=== PATIENT | female | born 1970 | race Caucasian/White ===

== ENCOUNTER 2025-04-04 18:31 | Inpatient (IN) | payer MEDICAID ==
[~2025-04-04] VITALS: Ht 175.3 cm; Wt 154.0 kg
--- NOTE | 2025-04-04 18:46 | Physician Documentation ---
History of Present Illness General Stated Complaint: RESPIRATORY Time Seen by MD: 18:45 History of Present Illness Initial Comments The patient is a 55-year-old female with a history of COPD lives in a skilled nursing. The skilled nursing checked her oxygen saturation this morning and it was 30%. The placed her on oxygen at the skilled nursing increasing her saturations to 70 80%. The patient denies any significant shortness of breath and skilled nursing states she has been more confused over last 24 hours. The patient denies being intubated in the past. The patient denies any recent fevers or chills or productive sputum. The patient denies any chest pain patient's symptoms are moderate to severe. The patient received three albuterol treatments today at the skilled nursing Medication Reconciliation Allergies: Coded Allergies: Penicillins (Verified Allergy, Unknown, 04/04/25) Uncoded Allergies: FISH (Allergy, Unknown, 04/04/25) Scheduled Albuterol Sulfate Nebs* (Proventil Nebs*), 1 VIAL NEB Q4H, (Reported) Bupropion Hcl SR* (Wellbutrin SR*), 1 TAB PO DAILY, (Reported) Furosemide (Lasix), 1 TAB PO DAILY, (Reported) Gabapentin (Gabapentin), 1 CAP PO Q8H, (Reported) Levothyroxine Sodium (Levothyroxine), 1 CAP PO DAILY, (Reported) Nystatin/Triamcin Cream* (Mycolog Cream*), 1 APPLIC TP TID, (Reported) Rivaroxaban (Xarelto), 1 TAB PO DAILY, (Reported) Scheduled PRN Acetaminophen (Tylenol), 1 TAB PO QDAY PRN PRN for pain or fever, (Reported) Miscellaneous Medications Pantoprazole Sodium (Protonix), 40 MG PO, (Reported) Past Medical History Past Medical History: COPD Review of Systems All Other Systems at this time: Reviewed and Negative Physical Exam Physical Exam Physical Exam VITALS: Reviewed and as above. GENERAL: Alert, mild respiratory distress large BMI HEENT: Normocephalic, atraumatic, PERRL, EOMI, dry mucosa, no erythema RESPIRATORY: Diminished breath sounds bilaterally, mild rest auditory distress CHEST: The patient mild distress with abdominal retractions CV: Regular rate, rhythm, no edema, no murmur, No: JVD GI: Soft, non-tender, bowels sounds present, no rebound, guarding, or rigidity BACK: No CVA tenderness, or swelling MUSCULOSKELETAL: No deformities, no edema SKIN: Warm and dry, no rash NEURO: Oriented x4, No motor or sensory deficit PSYCH: Normal mood and affect, no agitation Progress Results/Orders Results/Orders Orders - NORBERTO SANTIAGO MD Electrocardiogram (04/04/25 19:02) Chest,Single View (04/04/25 19:27) Saline Lock (04/04/25 19:02) Monitor (04/04/25 19:02) Oxygen (04/04/25 19:02) Abg (Arterial Blood Gas) (04/04/25 ) Bipap/Cpap (04/04/25 ) Ipratropium/Albuterol Nebule (Ipratrop/A (04/04/25 19:35) Covid19 Binax Poc Result Entry (04/04/25 19:50) Page Hospitalist (04/04/25 20:47) Fill Out Med Reconciliation (04/04/25 20:47) Completed Orders - NORBERTO SANTIAGO MD Cbc/Diff (04/04/25 19:02) MG (04/04/25 19:02) Electrocardiogram (04/04/25 19:02) PBNP (04/04/25 19:02) Chest,Single View (04/04/25:27) BMP (04/04/25 19:02) Hs Troponin I W Calculations (04/04/25 19:02) Hs Troponin I W Calculations (04/04/25 21:02) Hs Troponin I W Calculations (04/04/25 22:02) Procalcitonin (04/04/25 19:02) Methylprednisolone Sod Succ (Solumedrol (04/04/25 19:05) Potassium Cl Sr Tablet (K-Dur Tablet) (04/04/25 19:40) Potassium Cl Sr Tablet (K-Dur Tablet) (04/04/25 19:40) Magnesium Cl Er Tablet (Slow-Mag Tablet) (04/04/25 19:40) MG (04/07/25 03:00) MG (04/08/25 03:00) Magnesium Sulf-Water 2g/50ml (Magnesium (04/04/25 19:40) Magnesium Sulf-Water 4g/100ml (Magnesium (04/04/25 19:40) Potassium Cl 40meq/1/2ns 520ml ([place] (04/04/25 19:40) K And/Or Mag Replacement (K And/Or Mag R (04/04/25 20:00) Ceftriaxone 2gm/D5w 50ml Bag (Rocephin 2 (04/04/25 20:15) Hgb A1c (04/04/25 19:23) Lipid Panel (04/04/25 19:23) PHOS (04/04/25 19:23) Laboratory Tests Test 04/04/25 19:17 04/04/25 19:23 04/04/25 20:00 04/04/25 21:34 Blood Gas Specimen Type Arterial Blood Gas Puncture Site Lr O2 Saturation 68.1 *L Arterial Blood pH (Temp corrected) 7.353 Arterial Blood pCO2 (Temp correct) 73.0 *H Arterial Blood pO2 (Temp corrected) 36.1 *L Arterial Blood PO2/FiO2 Ratio 0.84 Arterial Blood HCO3 39.8 H Arterial Blood Base Excess 10.8 H Arterial Blood Oxyhemoglobin 67.0 L Arterial Blood Carboxyhemoglobin 1.5 Arterial Blood Methemoglobin 0.1 Arterial Blood Deoxyhemoglobin 31.4 H Trev Test Modified Blood Gas Hemoglobin 14.5 Blood Gas Temperature 36.7 Blood Gas Modality Room air FiO2 44.0 Blood Gas Critical Value Called To ohl White Blood Count 5.7 Red Blood Count 5.53 Hemoglobin 13.3 Hematocrit 42.7 Mean Corpuscular Volume 77.3 L Mean Corpuscular Hemoglobin 24.0 L Mean Corpuscular Hemoglobin Concent 31.1 L Red Cell Distribution Width 19.2 H Platelet Count 217 Mean Platelet Volume 6.8 L Neutrophils (%) (Auto) 52.2 Lymphocytes (%) (Auto) 38.0 Monocytes (%) (Auto) 6.9 Eosinophils (%) (Auto) 2.3 Basophils (%) (Auto) 0.6 Neutrophils # (Auto) 3.0 Lymphocytes # (Auto) 2.2 Monocytes # (Auto) 0.4 Eosinophils # (Auto) 0.1 Basophils # (Auto) 0.0 CBC Comment Prothrombin Time 13.5 H INR International Normalized Ratio 1.4 Activated Partial Thromboplast Time 29 Coagulation Comments Sodium Level 138 Potassium Level 3.2 L Chloride Level 93 L Carbon Dioxide Level 42.6 *H Anion Gap 2 L Blood Urea Nitrogen 10 Creatinine 0.87 Estimated GFR/1.73 m2 67 BUN/Creatinine Ratio 11.5 Glucose Level 135 H Hemoglobin A1c 5.7 Calcium Level 8.5 Phosphorus Level 4.3 Magnesium Level 1.8 Troponin I High Sensitivity 23 19 Pro-B-Type Natriuretic Peptide 1270 H Albumin 3.0 L Triglycerides Level 74 Cholesterol Level 113 LDL Cholesterol 62 HDL Cholesterol 40 Cholesterol/HDL Ratio 2.8 Procalcitonin < 0.05 Chemistry Comments SARS-CoV-2 Antigen (Rapid) Negative Troponin I High Sens Percent Delta 17 Troponin I Hi Sens Absolute Change -4 Medical Decision Making Additional information obtaine: old records Findings Patient's EKG demonstrates a sinus rhythm with a rate of 81 with a an normal axis and nonspecific ST abnormalities impression has a borderline EKG. No ST- elevation or ST-depression was appreciated time of the EKG was 1910 it was interpreted at 7:13 p.m.. The patient's chest x-ray was individually interpr eted by me as showing cardiomegaly with pulmonary vascular congestion. The patient has bilateral interstitial infiltrates in her lung rivas she has cardiomegaly and she has a narrow mediastinum with normal-appearing bony structures. The radiologist's interpretation was reviewed as well. The patient presented with hypercapnic respiratory failure the patient was paced on BiPAP th e patient will be treated for possible pneumonia, the patient will also be treated with Lasix. The patient will be admitted to the hospitalist case has been discussed with the hospitalist. Differential Diagnosis Pneumonia, COPD, CHF, pulmonary embolism Departure Admitted to Inpatient Unit: yes, to hospitalist Impression: Primary Impression: Chronic obstructive pulmonary disease Qualified Codes: J44.9 - Chronic obstructive pulmonary disease, unspecified Additional Impression: Acute respiratory failure with hypoxia and hypercarbia Referrals: NO PRIMARY CARE PROVIDER (PCP) Critical Care Note Total Time (mins): 35 Critical Care Note The very real possibility of a deterioration of this patient's condition required the highest level of my preparedness for sudden, emergent intervention. I provided critical care services, which included medication orders, frequent reevaluations of the patient's condition and response to treatment, ordering and reviewing test results, and discussing the case with various consultants. Excludes time spent performing separately billable procedures. The critical care time associated with the care of the patient was 35 minutes. Signature Scribe Signature: No scribe Attestation: The note accurately reflects work and decisions made by me.Norberto Santiago MD 04/09/25 08:51 NORBERTO SANTIAGO MD Apr 04, 2025 18:46
--- NOTE | 2025-04-04 19:13 | ELECTROCARDIOGRAPH REPORT ---
[facility] Test Date: 2025-04-04 Test Time: 19:11:01 Pat Name: CLARISSA TIWARI Department: [facility]-ER Patient ID: [facility]-[id number] Room: [place] [address] Gender: F [employer]: : 1970 Requested By: ANA SANTIAGO Order Number: [id number] Reading MD: Dr. RACHELE Sawyer Measurements Intervals [place] Rate: 81 P: 0 AK: 0 QRS: 93 QRSD: 138 T: -11 QT: 397 QTc: 461 Interpretive Statements normal sinus rhythm with baseline artifact. Nonspecific intraventricular conduction delay Consider anterior infarct Borderline T abnormalities, inferior leads Baseline wander in lead(s) V4 Electronically Signed On 04-07-2025 18:05:[address] RACHELE Sawyer Please click the below link to view image of tracing.
[2025-04-04 19:21] LABS: ABG BASE EXCESS 10.8 mmol/L (-2.0-3.0); ABG HCO3 39.8 mmol/L (21.0-28.0); ABG OXYGEN SATURATION 68.1 % (94.0-98.0); ABG PCO2 (T) 73.0 mmHg (32.0-45.0); ABG PH (T) 7.353 (7.350-7.450); ABG PO2 (T) 36.1 mmHg (83.0-108.0); ALLEN'S TEST Modified; FCOHb 1.5 % (0.5-1.5); FHHb 31.4 % (0.0-5.0); FIO2 44.0 mmHg/%; FMetHb 0.1 % (0.0-1.5); FO2Hb 67.0 % (94.0-98.0); PATIENT TEMPERATURE 36.7; TOTAL HEMOGLOBIN 14.5 G/dl (12.0-16.0)
[2025-04-04 19:32] VITALS: PULSE 75; RESP 23; O2SAT 100
[2025-04-04 19:33] LABS: MEAN PLATELET VOLUME 6.8 FL (7.4-10.4); RED CELL DISTRIBUTION WIDTH 19.2 % (11.5-14.5)
[2025-04-04] MEDS ORDERED: BUPR150T8 PO (19:36)
[2025-04-04] MEDS ORDERED: ALB0.5UD NEB (19:36)
[2025-04-04] MEDS ORDERED: LEVO112C5 PO (19:36)
[2025-04-04] MEDS ORDERED: GABA-530 PO (19:36)
[2025-04-04] MEDS ORDERED: ACET-1008 PO (19:36)
[2025-04-04] MEDS ORDERED: NYST30CR46 TP (19:36)
[2025-04-04] MEDS ORDERED: RIVA20TA PO (19:36)
[2025-04-04] MEDS ORDERED: FURO-150 PO (19:36)
[2025-04-04] MEDS ORDERED: PANT40SU2 PO (19:36)
[2025-04-04] MEDS ORDERED: potassium Cl 40MEQ/1/2NS 520ml 520 ML IV PRN ×2 (19:40→21:20)
[2025-04-04] MEDS ORDERED: magnesium sulf-water 4G/100mL 100 ML IV PRN ×2 (19:40→21:20)
[2025-04-04] MEDS ORDERED: potassium Cl 20 mEq SR tablet PO PRN ×3 (19:40→21:20)
[2025-04-04] MEDS ORDERED: magnesium sulf-water 2g/50mL 50 ML IV PRN ×2 (19:40→21:20)
[2025-04-04] MEDS ORDERED: magnesium Cl slow-release 64mg tablet PO PRN ×2 (19:40→21:20)
--- NOTE | 2025-04-04 19:40 | RADIOLOGY REPORT ---
CHEST RADIOGRAPH Indication: CP Technique: Single frontal view of the chest was obtained COMPARISON: None FINDINGS: Cardiac silhouette is enlarged. Mild diffuse prominence of the pulmonary vasculature. Bones and soft tissues demonstrate no significant abnormality. IMPRESSION: Cardiomegaly with mild pulmonary venous congestion.
[2025-04-04 19:41] VITALS: PULSE 72; RESP 20; O2SAT 99
[2025-04-04] MEDS: ipratropium/albuterol 3ml nebule NEB SCH ×2 (19:41→23:10)
[2025-04-04 19:47] VITALS: PULSE 75; RESP 20
[2025-04-04 19:57] LABS: CREATININE 0.87 MG/DL (0.40-0.90); PRO BRAIN NATRIURETIC PEPTIDE 1270 PG/ML (0-125); eCRCL 75 ML/MIN; eGFR 67 ML/MIN
[2025-04-04] MEDS: K and/or MAG REPLACEMENT MC SCH (20:00)
[2025-04-04 20:02] LABS: TOTAL CARBON DIOXIDE 42.6 MMOL/L (24-32)
[2025-04-04] MEDS: CefTRIAXone 2gm/D5W 50ml BAG 50 ML IV ONE (20:34)
[2025-04-04] MEDS ORDERED: HYDROcodone/acetaminophen 5mg/325mg tablet PO PRN (21:20)
[2025-04-04] MEDS ORDERED: magnesium hydroxide 30ml (MOM) UD suspension PO PRN (21:20)
--- NOTE | 2025-04-04 21:39 | HISTORY AND PHYSICAL-Residence ---
History & Physical Providers to CC Resident Creating Document: OSIRIS ROBERT, RES CC: ISRRAEL ALVAREZ MD ~ History of Present Illness Reason for Admit\Complaint: Acute COPD exacerbation History of Present Illness A 55-year-old female patient morbid obesity with past medical history of hypothyroidism, COPD on home oxygen of 4 L presented to the ED from long-term assisted living [facility], with chief complaints of shortness of breath and reduced oxygen saturation. Patient experience shortness of breath and was confused, on evaluation her oxygen saturation had dropped down to 30% and patient was brought to the ED. Evaluation in the ED patient's ABG was done which reported oxygen saturation of 68%, CO2 of 73-patient was diagnosed with hypercapnic respiratory failure and was initiated on BiPAP with FiO2 of 40% Patient does not move much and is usually on her wheelchair or resting on bed. Patient also has a history of blood clots for which she has been on Xarelto for the last four years. She also reported that she takes Lasix for her lymphedema. Patient denied any chief complaints of palpitations, fevers, chest pain Patient's primary care doctor is from [place]. Patient son lives close by, patient does not recall at her son's number Allergies: Coded Allergies: Penicillins (Verified Allergy, Unknown, 04/04/25) Uncoded Allergies: FISH (Allergy, Unknown, 04/04/25) Home Medications Home Medications Active Reported Xarelto (Rivaroxaban) 20 Mg Tablet 1 Tab PO DAILY 30 Days with food Protonix (Pantoprazole Sodium) 40 Mg Suspdr.pkt 40 Mg PO Mycolog Cream* (Nystatin/Triamcinolone Acetonide) 100,000 Unit/Gram-0.1 % Cream.gm. 1 Applic TP TID Levothyroxine (Levothyroxine Sodium) 112 Mcg Capsule 1 Cap PO DAILY 30 Days Gabapentin 100 Mg Capsule 1 Cap PO Q8H 30 Days Lasix (Furosemide) 20 Mg Tablet 1 Tab PO DAILY 30 Days Wellbutrin SR* (Bupropion HCl) 150 Mg Tablet.sa 1 Tab PO DAILY LOOK-ALIKE SOUND-ALIKE DRUG buSPIRone & buPROPion Proventil Nebs* (Albuterol) 2.5 Mg/0.5 Ml Vial.neb 1 Vial NEB Q4H 10 Days Tylenol (Acetaminophen) 325 Mg Tablet 1 Tab PO QDAY PRN PRN 30 Days Past Medical History Past Medical History Hypothyroidism COPD History of Blood clots on left lower extremity Cellulitis Past Surgical History Surgical History Comment Hysterectomy Cholecystectomy Past Social History Social History Comment Patient stated that she continues to smoke three cigarettes every day for the last five months, before that she used to smoke half pack of cigarettes for 40 years Patient denied any alcohol/illicit drug use ROS All Other Systems: Reviewed and Negative ROS Constitutional: No fever, dizziness, no weakness, no decrease in appetite HEENT: Normal vision. No sore throat, epistaxis, tinnitus Cardiovascular: No chest pain/discomfort, palpitations, syncope. no pedal edema Respiratory: Mild sob, no cough,hemoptysis Gastrointestinal: No abdominal pain, nausea, vomiting. No diarrhea, melena. Genitourinary: No frquency, urgency, incontinence, nocturia. No dysuria, hematuria Musculoskeletal: Bilateral lower extremity chronic lymphedema, chronic venous stasis Endocrine: No fatigue, polydipsia, polyuria. No heat or cold intolerance Neurologic: No headache, vertigo. No weakness, numbness or tingling of extremities Psychiatric: No hallucinations/delusions, no anhedonia, no suicidal ideation Hematologic: No bruises Exam Vitals: Vital Signs Date Time Temp Pulse Resp B/P (MAP) Pulse Ox O2 Delivery O2 Flow Rate FiO2 04/04/25 20:46 98.1 72 20 128/61 (83) 97 5.0 N/A 04/04/25 19:55 BiPAP+ General: General: Awake, oriented to person, place and time HEENT: Conjunctive are pink, sclerae clear, no icterus, pupil is equal in both sides, reactive to light, no ear discharge, no pharyngeal erythema or an edema. Neck: Supple, no JVD, no lymphadenopathy and thyromegaly. Chest: Increased work of breathing, bilateral vesicular breath sounds heard, bilateral lower zones absent breath sounds, no rhonchi no wheezing at the moment. Cardiovascular: S1-S2 regular sinus rhythm and, regular rate, no gallops, no rubs, no murmurs Abdomen: No visible peristalsis, Bowel sounds present on auscultation, soft, no tenderness, no guarding, no rigidity. Morbid obese abdomen, hepatomegaly noted, inter inguinal redness noted Extremities: Bilateral lower extremities chronic lymphedema and chronic venous stasis with 1+ pitting edema noted, capillary refill intact, peripheral pulsations are intact on both sides Neurologic: Mental status: alert and conscious, oriented to place, person and time, preserved memory, normal speech. Cranial nerves I-XII: Normal. Motor system: Preserved power, coordination, no evidenced involuntary movements, strength in bilateral upper extremities 5/5, strength in bilateral lower extremities 1/5 Sensory system: Preserved temperature, pain and vibration sensation. 2+ deep tendon reflexes in biceps, triceps, quadriceps. Negative Babinski. Cerebellar: No nystagmus, dysdiadochokinesia, normal [id number] testing. Musculoskeletal: No joint swelling, deformities, inflammations, and no scoliosis and back tenderness Skin: Warm and dry. Dry oral mucosa. Diagnostic Data Last Recorded Lab Results: 04/05/2531104/05/25311 Counseling Services Smoking & Tobacco Cessation: 3-10 Minutes (Discussing smoking cessation with the patient including the risk continued smoking with the patient including: lung cancer, stroke, heart attack, poor wound healing, increase in facial drinking, risk of MRSA skin infections.) Advance Care Planning Advanced Care plannin - 30 Minutes (Spent 17 minutes of critical care time discussing advanced care planning, patient decided she wanted to be a full code) Additional Plan Assessment A 55-year-old female patient morbid obesity with past medical history of hypothyroidism, COPD on home oxygen of 4 L presented to the ED from long-term assisted living [facility], with chief complaints of shortness of breath and reduced oxygen saturation. She is currently being treated for COPD exacerbation Acute on chronic type 2 respiratory failure Secondary to underlying COPD, obesity hypoventilation syndrome Patient presented to the ED with chief complaints of shortness of breaths and decrease in saturation; requiring BiPAP ABG interpreted as hypercapnia, hypoxemic respiratory failure, PH within normal limits Chest x-ray reported Cardiomegaly with mild pulmonary venous congestion Patient is currently requiring BiPAP with FiO2 of 40% and saturating at 95% Patient received Solu-Medrol 125 mg in the ED Plan Initiated the patient on IV ceftriaxone plus azithromycin 500 mg once a day Initiated the patient on Solu-Medrol IV 60 mg b.i.d. from tomorrow morning Continue to titrate BiPAP, maintain patient's saturation between 88-92% Initiated the patient on Albuterol q2h prn and Duonebs q4h [facility] Ordered echocardiogram to rule out any underlying congestive heart failure Elevated proBNP Possibly secondary to obesity Patient has never been diagnosed with any cardiac comorbidities Ordered echocardiogram Hypothyroidism Continue patient's home medication levothyroxine 112 mcg Ordered TSH Hypokalemia 2/2 diuretic use Patient stated that she takes Lasix 20 mg every day for her lymphedema and overall congestion of chest, in addition she uses potassium supplements Initiated the patient on spironolactone 25 mg in view of her hypokalemia Replace potassium as per protocol History of blood clots in her lower extremities Patient has been on Xarelto for the last 3-4 years Continue Xarelto 20 mg once daily Active tobacco use Discussed smoking cessation with the patient including the risk continued smoking with the patient including: lung cancer, stroke, heart attack and poor wound healing. Initiated the patient on nicotine patch 21 mg Sleep apnea Patient has a high risk of possibility of sleep apnea Recommended outpatient evaluation for sleep apnea Morbid obesity Patient's BMI is 50.1 kg/meter sq She is unable to walk on her own, use a wheelchair Recommend diet control for the patient Intertrigo Yoselin Continue patient's home medication nystatin cream As the patient's med rec, patient takes bupropion. On questioning she was unaware of why exactly she takes Please touch base with her in a.m., I have held the bupropion for now Code Status: Full code DVT Prophylaxis: Xarelto Lines/Tubes: PIV Gi Prophylaxis: Pantoprazole Nutrition: 60 g carb controlled diet PT:yes Prognosis: Guarded Disposition: Continue to monitor the patient, follow up with echocardiogram The above note has been reviewed and supervised by the senior resident PGY 2/PGY 3. Patient was seen and examined and discussed with attending physician Osiris Robert MD Internal medicine resident,PGY-1 Date of Service: Apr 04, 2025 Billing Provider: ISRRAEL ALVAREZ MD Addendum Attestation I agree with the residents assessment and plan as below: 55 year old female with hx of COPD on home O2 admitted with SOB Plan: follow up ECHO empiric abx ceftriaxone and azithromycin nebs Q6hrs steroids x 5 days spironolactone for diuresis CCT 51 min using HIPPA compliant A/V technology OSIRIS ROBERT, RES Apr 04, 2025 21:39 ISRRAEL ALVAREZ MD Apr 05, 2025 10:11
[2025-04-04] MEDS: normal saline 1000ml 1,000 ML IV SCH (21:49)
[2025-04-04 21:56] LABS: APTT 29 SECONDS (22-32); CHOL/HDL RATIO 2.8 (0.00-4.99); INR 1.4 INR; LDL CHOLESTEROL 62 MG/DL (50-100); PHOSPHORUS 4.3 MG/DL (2.3-4.5)
[2025-04-04] MEDS: PERFLUTREN PROTEIN-A MICROSPHR (Optison) 0.22 MG/ML 3ML VIAL IV ONE (22:04)
[2025-04-04 23:10] VITALS: PULSE 75; RESP 16; O2SAT 90
[2025-04-04 23:18] VITALS: PULSE 73; RESP 17
[2025-04-05] VITALS (12 sets, daily range): PULSE 64–78; RESP 13–20; O2SAT 92–96
[2025-04-05 03:23] LABS: MEAN PLATELET VOLUME 6.9 FL (7.4-10.4); RED CELL DISTRIBUTION WIDTH 19.3 % (11.5-14.5)
[2025-04-05 03:49] LABS: CREATININE 0.78 MG/DL (0.40-0.90); TOTAL CARBON DIOXIDE 39.8 MMOL/L (24-32); eCRCL 83 ML/MIN; eGFR 76 ML/MIN
[2025-04-05 05:11] LABS: LEUKOCYTE ESTERASE ,URINE TRACE (Neg); NITRITES, URINE NEGATIVE (Neg); OCCULT BLOOD,URINE SMALL (Neg)
[2025-04-05 05:19] LABS: UA COLLECTION TYPE NON-SPECIFIED
[2025-04-05 05:20] LABS: SQUAMOUS EPITHELIAL CELL,UR FEW /LPF (FEW)
[2025-04-05] MEDS: nicotine 21mg patch - 24 hr TD SCH (08:00)
[2025-04-05] MEDS: docusate sod 100mg capsule PO SCH (08:00)
[2025-04-05] MEDS: K and/or MAG REPLACEMENT MC SCH (08:00)
[2025-04-05] MEDS: CefTRIAXone/D5W-Rocephin 1gm 50 ML IV SCH (08:15)
[2025-04-05] MEDS: levoTHYROXINE 112mcg tablet PO SCH (08:15)
[2025-04-05] MEDS: nystatin/triamcinolone cream 15gm TP SCH (10:10)
--- NOTE | 2025-04-05 13:50 | VASCULAR REPORT ---
CLINICAL HISTORY: Bilateral lower extremity edema. TECHNIQUE: Color and duplex doppler imaging of the bilateral lower extremity veins was performed. Vessel compression if possible was also performed. WID: COMPARISON: None FINDINGS: Right Lower Extremity: Right common femoral vein: Normal compressibility and flow. Right femoral vein: Normal compressibility and flow. Right popliteal vein: Normal compressibility and flow. Peroneal veins not well-visualized due to body habitus and edema. Visualized posterior tibial vein is grossly patent. Left Lower Extremity: Left common femoral vein: Normal compressibility and flow. Left femoral vein: Normal compressibility and flow. The left femoral vein is small in size. Left popliteal vein: Normal compressibility and flow. Peroneal veins not well-visualized due to body habitus and edema. Visualized posterior tibial vein grossly patent IMPRESSION: 1. NO SONOGRAPHIC EVIDENCE FOR DEEP VENOUS THROMBOSIS IN THE BILATERAL LOWER EXTREMITY VEINS. 2. Left femoral vein is small in size which could be related to previous thrombus.
--- NOTE | 2025-04-05 15:15 | PROGRESS NOTE- Residence ---
Progress Note - Resident Providers to CC Resident Creating Document: ELIZABETH WEBB RES ~ Antibiotic Timeout Antibiotic Ordered?: Yes Subjective Patient is seen and examined at the bedside. Patient reports that yesterday she suddenly developed shortness of breath, desaturation and weakness, which is gradually improving. She refused chest CTA ordered this morning. Currently she denies chest pain, productive cough or fever. No other symptoms reported. Objective Vital Signs Date Time Temp Pulse Resp B/P (MAP) Pulse Ox O2 Delivery O2 Flow Rate FiO2 04/05/25 15:03 70 18 Nasal Cannula 4.0 04/05/25 14:56 93 36 04/05/25 13:57 98.1 144/80 (101) Result Diagram: 04/05/25 03104/05/25 031 Awake , alert, and oriented in person, time and place. Morbidly obese HEENT: Atraumatic, normocephalic, EOMI, anicteric sclera ; moist mucous membrane Neck: Trachea midline. Supple, full range of motion, no JVD Cardiac: Regular rhythm, regular rate with no murmurs all over the precordium. Respiratory: Diminished air movement bilaterally, sparse expiratory wheezing, no crackles, Chest wall is symmetric and without deformity. Gastrointestinal: Abdomen distended, soft, non-tender, normal bowel sounds x4 quadrant, normoactive, no hepatosplenomegaly Musculoskeletal: 3+ lower extremity edema, skin discoloration Neurological: Mental status exam: alert and consciousness, orientation, memory, speech - Cranial nerve test: Cranial nerves 2-12 intact - Motor system: Normal Nutrition, decreased tone, Power 4/5 in lower extremities, no involuntary movements - Sensory system: Intact - Cerebellar: Normal Skin: Warm and dry Coagulation Studies Laboratory Tests Test 04/04/25 19:23 Prothrombin Time 13.5 SECONDS (9.0-12.0) H INR International Normalized Ratio 1.4 INR Activated Partial Thromboplast Time 29 SECONDS (22-32) Coagulation Comments Plan Plan Assessment 55-year-old female with a past medical history of morbid obesity, hypothyroidism, COPD, prior DVT, chronic lymphedema, presented in the ER for severe shortness of breath that started suddenly. She was admitted for further evaluation management.. 1. Acute on chronic hypercapnic and hypoxemic respiratory failure due to below Acute COPD exacerbation, actively smoking Acute HFpEF exacerbation Obesity hypoventilation, BMI 50 PE cannot be ruled out Significant clinical improvement with BiPAP Sudden shortness of breath, previous DVT, immobilization ABG: PaO2 68%, Cheli 73, pH normal hypoxemic respiratory failure Chest X-ray: cardiomegaly, mild pulmonary venous congestion Echo (preliminary): LVEF 61.6. RVSP 27mmHg. Plan: Continue BiPAP, wean off oxygen as tolerated to mantin SpO2 8892% Continue IV Solu-Medrol 60 mg BID Continue ceftriaxone + azithromycin 500 mg daily Albuterol q2h PRN + scheduled Duonebs q4h Ordered chest CTA to rule out PE, patient refused Ordered incentive spirometry Started on Lasix 20 mg IV daily, strict I&Os 2. Hypothyroidism On levothyroxine 112 mcg daily TSH 1.13 Plan: Continue current dose 3. Hypokalemia, mild Hyponatremia, mild K 3.2 at admission, not 3.5 Na 134 On Lasix 20 mg daily; Plan: Replace potassium per protocol 4. History of DVT On Xarelto 20 mg daily Plan: Ordered Venous US: No acute DVT. Left femoral vein is small in size which could be related to previous thrombus. Continue anticoagulation 5. Intertrigo (Yoselin) Continue nystatin cream Wound care requested for skin check Code Status: Full code DVT Prophylaxis: Xarelto Lines/Tubes: PIV Gi Prophylaxis: Pantoprazole Nutrition: Regular diet PT: Pending Prognosis: Guarded Disposition: Continue medical treatment. Resident attestation The above note has been reviewed and supervised by a senior resident PGY2/PGY3 Patient was seen, examined and discussed with the attending physician Dr Parker Date of Service: Apr 05, 2025 Billing Provider: ALYSSA PARKER MD, LUCAS, RES Apr 05, 2025 15:15
--- NOTE | 2025-04-05 16:57 | CARDIOLOGY REPORT ---
APPROVED REPORT EXAM: Comprehensive 2D, Doppler, and color-flow Echocardiogram. Patient Location: ED 8 Blood Pressure: 120/67 mmHg Heart Rate: 70's bpm Rhythm: SINUS Indications SHORTNESS OF BREATH COPD Collection Card Clerk: NONE Previous echo: NONE 2D Dimensions IVSd 1.1 (0.7-1.1cm) LVDd 4.2 cm PWd 1.1 (0.7-1.1cm) IVSs 1.5 (0.8-1.2cm) LVDs 2.8 (2.5-4.0cm) PWs 1.5 (0.8-1.2cm) LVOT Diameter 2.15 (1.8-2.4cm) LVEF(%) 61.6 (>50%) FS (%) 32.8 % SV 50.8 ml CO 3.9 L/min M-Mode Dimensions Left Atrium(MM) 4.00 (2.5-4.0cm) Aortic Root 3.50 (2.2-3.7cm) Aortic Valve AoV Peak Bob. 176.2 cm/s AoV VTI 35.8 cm AO Peak GR. 12.4 mmHg AO Mean GR. 6 mmHg LVOT VTI 28.94 cm LVOT Peak Bob. 141.2 cm/s SONIA(VTI)/BSA 2.92 cm2/m2 SONIA (VTI) 2.92 cm2 AV DI 0.81 % Mitral Valve MV E Velocity 66.7 cm/s MV Peak Gr. 4 mmHg MV DECEL TIME 204 ms MV A Velocity 77.3 cm/s MV PHT 56 ms E/A Ratio 0.9 MVA (PHT) 3.93 cm2 MV VMax 105.3 cm/s Tricuspid Valve TR P. Velocity 207 cm/s RAP ESTIMATE 10 mmHg TR Peak Gr. 17 mmHg RVSP 27 mmHg LEFT VENTRICLE Normal LV size and wall thickness. Overall systolic function is normal. LVEF is 60-65%. RIGHT VENTRICLE RV appears normal in size and function. ATRIA The left atrium size is normal. AORTIC VALVE Trileaflet AV appears normal without stenosis. No insufficiency. MITRAL VALVE Mild MV annular calcification without stenosis. Trace regurgitation. TRICUSPID VALVE TV appears structurally normal with trace regurgitation. PULMONIC VALVE Normal PV without stenosis, physiologic insufficiency. GREAT VESSELS The aortic root is normal in size. PERICARDIUM Normal pericardium. No effusion. Other Information Study Quality: Fair, but difficult apical window due to body habitus Conclusion Normal LV size and wall thickness. Overall systolic function is normal. LVEF is 60-65%. RV appears normal in size and function. The left atrium size is normal. Trileaflet AV appears normal without stenosis. No insufficiency. Mild MV annular calcification without stenosis. Trace regurgitation. TV appears structurally normal with trace regurgitation. Normal pericardium. No effusion.
[2025-04-06] VITALS (19 sets, daily range): BP systolic 96–118; BP diastolic 50–68; PULSE 64–99; RESP 16–22; TEMP 96.9–97.9; O2SAT 86–96
[2025-04-06 06:40] LABS: MEAN PLATELET VOLUME 6.9 FL (7.4-10.4); RED CELL DISTRIBUTION WIDTH 19.1 % (11.5-14.5)
[2025-04-06 07:13] LABS: CREATININE 0.75 MG/DL (0.40-0.90); TOTAL CARBON DIOXIDE 38.4 MMOL/L (24-32); eCRCL 86 ML/MIN; eGFR 80 ML/MIN
[2025-04-06 07:56] LABS: MODE Room Air
[2025-04-06] MEDS: potassium Cl 20 mEq SR tablet PO PRN (08:47)
--- NOTE | 2025-04-06 13:23 | PROGRESS NOTE- Residence ---
Progress Note - Resident Providers to CC Resident Creating Document: ELIZABETH WEBB RES ~ Antibiotic Timeout Antibiotic Ordered?: Yes Subjective Patient is seen and examined at the bedside. Patient reports significant improvement of the shortness of breath. She continuous to refused chest CTA or V/Q scan. Currently she denies chest pain, productive cough or fever. No other symptoms reported. Objective Vital Signs Date Time Temp Pulse Resp B/P (MAP) Pulse Ox O2 Delivery O2 Flow Rate FiO2 04/06/25 12:02 71 18 Nasal Cannula 2.0 04/06/25 11:55 92 28 04/06/25 10:49 97.7 96/54 (68) Result Diagram: 04/06/2561204/06/25612 Awake , alert, and oriented in person, time and place. Morbidly obese HEENT: Atraumatic, normocephalic, EOMI, anicteric sclera ; moist mucous membrane Neck: Trachea midline. Supple, full range of motion, no JVD Cardiac: Regular rhythm, regular rate with no murmurs all over the precordium. Respiratory: Diminished air movement bilaterally, sparse expiratory wheezing, no crackles, Chest wall is symmetric and without deformity. Gastrointestinal: Abdomen distended, soft, non-tender, normal bowel sounds x4 quadrant, normoactive, no hepatosplenomegaly Musculoskeletal: 3+ lower extremity edema, skin discoloration Neurological: Mental status exam: alert and consciousness, orientation, memory, speech - Cranial nerve test: Cranial nerves 2-12 intact - Motor system: Normal Nutrition, decreased tone, Power 4/5 in lower extremities, no involuntary movements - Sensory system: Intact - Cerebellar: Normal Skin: Warm and dry Coagulation Studies Laboratory Tests Test 04/04/25 19:23 04/06/25 06:13 Prothrombin Time 13.5 SECONDS (9.0-12.0) H INR International Normalized Ratio 1.4 INR Activated Partial Thromboplast Time 29 SECONDS (22-32) Coagulation Comments D-Dimer 0.95 MG/L FEU (0-0.50) H D-Dimer Comment Plan Plan Assessment 55-year-old female with a past medical history of morbid obesity, hypothyroidism, COPD, prior DVT, chronic lymphedema, presented in the ER for severe shortness of breath that started suddenly. She was admitted for further evaluation management.. 1. Acute on chronic hypercapnic and hypoxemic respiratory failure due to below Obesity hypoventilation syndrome , BMI 50 Acute COPD exacerbation, actively smoking PE cannot be ruled out, elevated d-dimer, high risk Well's score Heart failure, ruled out (elevated BNP but normal Echo) Significant clinical improvement with BiPAP Sudden shortness of breath, previous DVT, immobilization ABG: PaO2 68%, Cheli 73, pH normal hypoxemic respiratory failure Chest X-ray: cardiomegaly, mild pulmonary venous congestion Echo: Overall systolic function is normal. LVEF is 60-65%. Plan: Continue BiPAP at night, wean off oxygen as tolerated to mantain SpO2 8892% Continue IV Solu-Medrol, ceftriaxone (day 3) and azithromycin (day 3) Continue Albuterol q2h PRN + scheduled Duonebs q4h Patient refused CTA or V/Q scan Possible discharge in the next 1-2 days if out of oxygen. She probably will need CPAP as outpatient. 2. Acute UTI, uncomplicated Urine culture growing Gram-negative rods Continue ceftriaxone 3. Hypothyroidism On levothyroxine 112 mcg daily TSH 1.13 Plan: Continue current dose 4. Hypokalemia, mild Hyponatremia -resolved K 3.2 today Na 134 -> 137 today On Lasix 20 mg daily; Plan: Replace potassium per protocol 5. History of DVT Venous US: No acute DVT. Left femoral vein is small in size which could be related to previous thrombus. Continue Xarelto 20 mg daily 6. Intertrigo (Yoselin) Continue nystatin cream Continue skin care, keep it dry and clean Code Status: Full code DVT Prophylaxis: Xarelto Lines/Tubes: PIV Gi Prophylaxis: Pantoprazole Nutrition: Regular diet PT: Pending Prognosis: Guarded Disposition: Continue medical treatment. Possible discharge in next 1-2 days. Resident MD attestation The above note has been reviewed and supervised by a senior resident PGY2/PGY3 Patient was seen, examined and discussed with the attending physician Dr Parker Date of Service: Apr 06, 2025 Billing Provider: ALYSSA PARKER MD, LUCAS, RES Apr 06, 2025 13:23
[2025-04-07] VITALS (18 sets, daily range): BP systolic 106–131; BP diastolic 58–73; PULSE 60–79; RESP 13–24; TEMP 96.4–98.4; O2SAT 87–93
--- NOTE | 2025-04-07 04:35 | ELECTROCARDIOGRAPH REPORT ---
[facility] Test Date: 2025-04-07 Test Time: 04:33:13 Pat Name: CLARISSA TIWARI Department: [facility] 3S Patient ID: [id number] Room: [place] [address] C Gender: F Boat Carpenter: : 1970 Requested By: SUNDEEP SIERRA Order Number: [id number] Reading MD: Dr. RACHELE Sawyer Measurements Intervals B[place]am Rate: 64 P: 64 IL: 143 QRS: -6 QRSD: 144 T: 57 QT: 414 QTc: 427 Interpretive Statements Sinus rhythm IVCD, consider atypical LBBB Electronically Signed On 04-07-2025 18:02:[address] RACHELE Sawyer Please click the below link to view image of tracing.
[2025-04-07] MEDS: HYDROmorphone/PF 0.2 MG/ML SYRINGE IV PRN (04:49)
[2025-04-07] MEDS: mag hydrox/Alum hydrox/simeth 30ml oral suspension PO PRN (05:36)
[2025-04-07 06:05] LABS: MEAN PLATELET VOLUME 7.1 FL (7.4-10.4); RED CELL DISTRIBUTION WIDTH 19.0 % (11.5-14.5)
[2025-04-07 06:22] LABS: CREATININE 0.79 MG/DL (0.40-0.90); TOTAL CARBON DIOXIDE 36.5 MMOL/L (24-32); eCRCL 82 ML/MIN; eGFR 75 ML/MIN
--- NOTE | 2025-04-07 17:07 | PROGRESS NOTE- Residence ---
Progress Note - Resident Providers to CC Resident Creating Document: ELIZABETH WEBB RES ~ Antibiotic Timeout Antibiotic Ordered?: Yes Subjective Patient is seen and examined at the bedside. The patient reports marked improvement in dyspnea, this afternoon in room air. She currently denies chest pain, productive cough, or fever. No additional symptoms are noted. She was going to be discharged what had transportation issues back to her facility. Objective Vital Signs Date Time Temp Pulse Resp B/P (MAP) Pulse Ox O2 Delivery O2 Flow Rate FiO2 04/07/25 15:59 74 24 Room Air 0.0 21 04/07/25 15:50 87 04/07/25 11:04 97.3 123/63 (83) Result Diagram: 04/07/25 0513 04/07/25 0513 Awake , alert, and oriented in person, time and place. Morbidly obese HEENT: Atraumatic, normocephalic, EOMI, anicteric sclera ; moist mucous membrane Neck: Trachea midline. Supple, full range of motion, no JVD Cardiac: Regular rhythm, regular rate with no murmurs all over the precordium. Respiratory: Diminished air movement bilaterally, sparse expiratory wheezing improving from yesterday, no crackles, Chest wall is symmetric and without deformity. Gastrointestinal: Abdomen distended, soft, non-tender, normal bowel sounds x4 quadrant, normoactive, no hepatosplenomegaly Musculoskeletal: 3+ lower extremity edema, brown skin discoloration Neurological: Mental status exam: alert and consciousness, orientation, memory, speech - Cranial nerve test: Cranial nerves 2-12 intact - Motor system: Normal Nutrition, decreased tone, Power 4/5 in lower extremities, no involuntary movements - Sensory system: Intact - Cerebellar: Normal Skin: Warm and dry Coagulation Studies Laboratory Tests Test 04/04/25 19:23 04/06/25 06:13 Prothrombin Time 13.5 SECONDS (9.0-12.0) H INR International Normalized Ratio 1.4 INR Activated Partial Thromboplast Time 29 SECONDS (22-32) Coagulation Comments D-Dimer 0.95 MG/L FEU (0-0.50) H D-Dimer Comment Plan Plan Assessment 55-year-old female with a past medical history of morbid obesity, hypothyroidism, COPD, prior DVT, chronic lymphedema, presented in the ER for severe shortness of breath that started suddenly. She was admitted for further evaluation management. 1. Acute on chronic hypercapnic and hypoxemic respiratory failure due to below Obesity hypoventilation syndrome , BMI 50 Acute COPD exacerbation, actively smoking PE cannot be ruled out, elevated d-dimer, high risk Well's score Heart failure, ruled out (elevated BNP but normal Echo) Significant clinical improvement with BiPAP Sudden shortness of breath, previous DVT, immobilization ABG: PaO2 68%, Cheli 73, pH normal hypoxemic respiratory failure Chest X-ray: cardiomegaly, mild pulmonary venous congestion Echo: Overall systolic function is normal. LVEF is 60-65%. Plan: No need for oxygen if SpO2 is 8892% Continue ceftriaxone (day 4), stop azithromycin (day 3) Continue Albuterol q2h PRN + scheduled Duonebs q4h Stable to be discharged with maintenance inhaler and outpatient follow-up 2. Acute UTI, uncomplicated Urine culture growing Gram-negative rods Continue ceftriaxone day 4 3. Hypothyroidism On levothyroxine 112 mcg daily TSH 1.13 Plan: Continue current dose 4. Hypokalemia, mild Hyponatremia -resolved K 3.3 today On Lasix 20 mg daily; Plan: Replace potassium per protocol 5. History of DVT Venous US: No acute DVT. Left femoral vein is small in size which could be related to previous thrombus. Continue Xarelto 20 mg daily 6. Intertrigo (Yoselin) Continue nystatin cream Continue skin care, keep it dry and clean Code Status: Full code DVT Prophylaxis: Xarelto Lines/Tubes: PIV Gi Prophylaxis: Pantoprazole Nutrition: Regular diet PT: Pending Prognosis: Guarded Disposition: Stable to be discharged. Resident MD attestation The above note has been reviewed and supervised by a senior resident PGY2/PGY3 Patient was seen, examined and discussed with the attending physician Dr Parker Date of Service: Apr 07, 2025 Billing Provider: ALYSSA PARKER MD, LUCAS, RES Apr 07, 2025 17:07
[2025-04-08] VITALS (16 sets, daily range): BP systolic 129–149; BP diastolic 62–84; PULSE 66–81; RESP 14–22; TEMP 97.1–98; O2SAT 90–97
[2025-04-08 06:12] LABS: MEAN PLATELET VOLUME 6.7 FL (7.4-10.4); RED CELL DISTRIBUTION WIDTH 19.2 % (11.5-14.5)
[2025-04-08 06:30] LABS: CREATININE 0.79 MG/DL (0.40-0.90); TOTAL CARBON DIOXIDE 36.6 MMOL/L (24-32); eCRCL 82 ML/MIN; eGFR 75 ML/MIN
--- NOTE | 2025-04-08 11:50 | CONSULTATION REPORT - RESIDENT ---
Consult Providers to CC Resident Creating Document: ELLIE OLIVA RES History of Present Illness Reason for Admit\Complaint: COPD exacerbation History of Present Illness The patient is a 55-year-old female with a BMI of 50, active smoker, usually confined to wheelchair, with a known history of COPD and obesity hyperventilation syndrome. She came from [facility], where she recently relocated on Sunday, and presented to the hospital on Sunday with a worsening shortness of breaths due to Acute COPD exacerbation. In addition to respiratory symptoms, she reported dysuria, urinary frequency, and burning on urination for approximately six days prior to admission, consistent with a symptomatic urinary tract infection. She was empirically started on intravenous ceftriaxone, which she received for a total of 5 days. Urine culture has since grown ESBL producing E coli, resistant to all tested antibiotics except Meropenem. She has remained afebrile and hemodynamically stable with no leukocytosis or elevated inflammatory markers. No blood cultures have been obtained. Infectious Disease Services was consulted for further management and antibiotics recommendations. Allergies: Coded Allergies: Penicillins (Verified Allergy, Unknown, 04/04/25) Uncoded Allergies: FISH (Allergy, Unknown, 04/04/25) Home Medications Home Medications Active Reported Xarelto (Rivaroxaban) 20 Mg Tablet 1 Tab PO DAILY 30 Days with food Protonix (Pantoprazole Sodium) 40 Mg Suspdr.pkt 40 Mg PO Mycolog Cream* (Nystatin/Triamcinolone Acetonide) 100,000 Unit/Gram-0.1 % Cream.gm. 1 Applic TP TID Levothyroxine (Levothyroxine Sodium) 112 Mcg Capsule 1 Cap PO DAILY 30 Days Gabapentin 100 Mg Capsule 1 Cap PO Q8H 30 Days Lasix (Furosemide) 20 Mg Tablet 1 Tab PO DAILY 30 Days Wellbutrin SR* (Bupropion HCl) 150 Mg Tablet.sa 1 Tab PO DAILY LOOK-ALIKE SOUND-ALIKE DRUG buSPIRone & buPROPion Proventil Nebs* (Albuterol) 2.5 Mg/0.5 Ml Vial.neb 1 Vial NEB Q4H 10 Days Tylenol (Acetaminophen) 325 Mg Tablet 1 Tab PO QDAY PRN PRN 30 Days Past Medical History Past Medical History COPD, obesity hyperventilation syndrome, cellulitis Past Surgical History Surgical History Comment Cholecystectomy, hysterectomy Past Social History Social History Comment She lives in assisted living facility, recently relocated. She is active smoker, cut back for the past five months; 40 pack history. Morbidly obese, usually confined to wheelchair. ROS ROS As stated above in the HPI, otherwise all systems are reviewed and negative. Exam Vitals: Vital Signs Date Time Temp Pulse Resp B/P (MAP) Pulse Ox O2 Delivery O2 Flow Rate FiO2 04/08/25 11:23 69 14 Room Air 0.0 04/08/25 11:23 94 N/A 04/08/25 06:00 97.1 138/69 (92) General: Awake and Alert, no acute distress. Resp: Bilateral expiratory wheezing Heart: Regular Rate and rhythm, normal S1 and S2 without murmur, rub or gallop. Abdomen: Soft and non tender no organomegaly Extremities: 2+ pedal edema, lymphedema, stasis dermatitis Skin: Warm and Dry. Diagnostic Data Last Recorded Lab Results: 04/08/25 0533 04/08/25 0533 Diagnostic Data: Laboratory Tests Test 04/04/25 19:23 04/06/25 06:13 Prothrombin Time 13.5 SECONDS (9.0-12.0) H INR International Normalized Ratio 1.4 INR Activated Partial Thromboplast Time 29 SECONDS (22-32) Coagulation Comments D-Dimer 0.95 MG/L FEU (0-0.50) H D-Dimer Comment Additional Plan ESBL producing E coli urinary tract infection Urine culture positive for ESBL E coli, resistant to all antibiotics except meropenem Likely complicated UTI given her obesity hyperventilation and recent relocation to assisted living No bacteremia; blood cultures not obtained. She has remained afebrile and hemodynamically stable Currently clinically stable and improving. Creatinine is normal. Plan: Meropenem 1 g IV every 8 hours initiated. Anticipated short-term IV antibiotics; total duration of one week Continue IV therapy through a custodial facility to complete the course. She will require a midline. I discussed the plan with the case manager specialist (Ms. Bradley), who is coordinating SNF placement and will arrange midline placement tomorrow Monitor for improvement in urinary symptoms; repeat urine culture only if symptoms persist or reoccur Disposition: Plan for transfer to SNF once midline is placed Acute on chronic respiratory failure Acute COPD exacerbation Obesity hyperventilation syndrome continue management per primary team Thank you for allowing us to participate in the care of your patient. We will continue to follow. Ellie Oliva Internal Medicine Resident, PGY-3 Date of Service: Apr 08, 2025 Billing Provider: WHIT DUBOSE MD Addendum Agree with above note. Patient seen and examined with Dr. Oliva. Complete treatment of UTI with one week meropenem. ELLIE OLIVA, RES Apr 08, 2025 11:50 WHIT DUBOSE MD Apr 08, 2025 22:35
[2025-04-08] MEDS: MEROPENEM 1GM/NACL 50ML IVPB 50 ML IV SCH (14:46)
[2025-04-08] MEDS: POTASSIUM CHLORIDE 20 MEQ/15 ML oral solution PO SCH (16:04)
[2025-04-08] MEDS ORDERED: magnesium sulf-water 4G/100mL 100 ML IV PRN (16:10)
[2025-04-08] MEDS ORDERED: potassium Cl 20 mEq SR tablet PO PRN (16:10)
[2025-04-08] MEDS ORDERED: magnesium sulf-water 2g/50mL 50 ML IV PRN (16:10)
[2025-04-08] MEDS ORDERED: potassium Cl 40MEQ/1/2NS 520ml 520 ML IV PRN (16:10)
[2025-04-08] MEDS ORDERED: magnesium Cl slow-release 64mg tablet PO PRN (16:10)
--- NOTE | 2025-04-08 16:46 | PROGRESS NOTE- Residence ---
Progress Note - Resident Providers to CC Resident Creating Document: ELIZABETH WEBB RES ~ Antibiotic Timeout Antibiotic Ordered?: Yes Subjective Patient is seen and examined at the bedside. The patient reports complete remission of her shortness for breath. Urinary symptoms have improved but today urine culture was positive for ESBL. No other symptoms reported since admission. Objective Vital Signs Date Time Temp Pulse Resp B/P (MAP) Pulse Ox O2 Delivery O2 Flow Rate FiO2 04/08/25 15:28 72 20 Room Air 0.0 Nasal Cannula 04/08/25 15:27 95 N/A 04/08/25 11:00 97.7 149/62 (91) Result Diagram: 04/08/25 0533 04/08/25 0533 Awake , alert, and oriented in person, time and place. Morbidly obese HEENT: Atraumatic, normocephalic, EOMI, anicteric sclera ; moist mucous membrane Neck: Trachea midline. Supple, full range of motion, no JVD Cardiac: Regular rhythm, regular rate with no murmurs all over the precordium. Respiratory: Diminished air movement bilaterally, sparse expiratory wheezing improving from yesterday, no crackles, Chest wall is symmetric and without deformity. Gastrointestinal: Abdomen distended, soft, non-tender, normal bowel sounds x4 quadrant, normoactive, no hepatosplenomegaly Musculoskeletal: 3+ lower extremity edema, brown skin discoloration Neurological: Mental status exam: alert and consciousness, orientation, memory, speech - Cranial nerve test: Cranial nerves 2-12 intact - Motor system: Normal Nutrition, decreased tone, Power 4/5 in lower extremities, no involuntary movements - Sensory system: Intact - Cerebellar: Normal Skin: Warm and dry Coagulation Studies Laboratory Tests Test 04/04/25 19:23 04/06/25 06:13 Prothrombin Time 13.5 SECONDS (9.0-12.0) H INR International Normalized Ratio 1.4 INR Activated Partial Thromboplast Time 29 SECONDS (22-32) Coagulation Comments D-Dimer 0.95 MG/L FEU (0-0.50) H D-Dimer Comment Plan Plan Assessment 55-year-old female with a past medical history of morbid obesity, hypothyroidism, COPD, prior DVT, chronic lymphedema, presented in the ER for severe shortness of breath that started suddenly. She was admitted for further evaluation management. 1. Acute on chronic hypercapnic and hypoxemic respiratory failure - resolved Obesity hypoventilation syndrome , BMI 50 Acute COPD exacerbation, actively smoking - resolved PE cannot be ruled out, elevated d-dimer, high risk Well's score Heart failure, ruled out (elevated BNP but normal Echo) ABG at admission: PaO2 68%, Cheli 73, pH normal hypoxemic respiratory failure Chest X-ray: cardiomegaly, mild pulmonary venous congestion Echo: Overall systolic function is normal. LVEF is 60-65%. Plan: Oximetry 95% on room air, stable Completed ceftriaxone (day 5) and azithromycin (day 3) Continue Albuterol q2h PRN + scheduled Duonebs q4h Currently on meropenem day 1 due to UTI 2. Acute UTI due to ESBL Urine culture grew ESBL sensitive only to meropenem Consulted ID Started on meropenem, day 1 Planned 2 weeks of antibiotics Possible discharge to SNF with midline 3. Hypothyroidism On levothyroxine 112 mcg daily TSH 1.13 Plan: Continue current dose 4. Hypokalemia, mild Hyponatremia -resolved K 3.4 today On Lasix 20 mg daily; Plan: Replace potassium per protocol. Convert IV Lasix to p.o. 20mg daily. 5. History of DVT Venous US: No acute DVT. Left femoral vein is small in size which could be related to previous thrombus. Continue Xarelto 20 mg daily 6. Intertrigo (Yoselin) Continue nystatin cream Continue skin care, keep it dry and clean Code Status: Full code DVT Prophylaxis: Xarelto Lines/Tubes: PIV Gi Prophylaxis: Pantoprazole Nutrition: Regular diet Prognosis: Guarded Disposition: Started on meropenem for ESBL. Patient will require placement for two weeks IV antibiotics. Resident attestation The above note has been reviewed and supervised by a senior resident PGY2/PGY3 Patient was seen, examined and discussed with the attending physician Dr Parker Date of Service: Apr 08, 2025 Billing Provider: ALYSSA PARKER MD,ELIZABETH, RES Apr 08, 2025 16:46
[2025-04-08] MEDS: K and/or MAG REPLACEMENT MC SCH (20:00)
[2025-04-08] MEDS: potassium Cl 20 mEq SR tablet PO PRN (21:41)
[2025-04-09] VITALS (17 sets, daily range): BP systolic 113–129; BP diastolic 52–84; PULSE 64–86; RESP 16–20; TEMP 97.3–97.7; O2SAT 89–97
[2025-04-09 04:41] LABS: MEAN PLATELET VOLUME 7.0 FL (7.4-10.4); RED CELL DISTRIBUTION WIDTH 19.1 % (11.5-14.5)
[2025-04-09 04:48] LABS: CREATININE 0.78 MG/DL (0.40-0.90); TOTAL CARBON DIOXIDE 37.0 MMOL/L (24-32); eCRCL 83 ML/MIN; eGFR 76 ML/MIN
--- NOTE | 2025-04-09 10:41 | PROGRESS NOTE- Residence ---
Progress Note - Resident Providers to CC Resident Creating Document: ELIZABETH WEBB RES ~ Antibiotic Timeout Antibiotic Ordered?: Yes Subjective Patient is seen and examined at the bedside. The patient denies chest pain, shortness of breath, productive cough or fever. Urinary symptoms have improved and she is on IV meropenem. No overnight events reported. Objective Vital Signs Date Time Temp Pulse Resp B/P (MAP) Pulse Ox O2 Delivery O2 Flow Rate FiO2 04/09/25 07:26 73 16 97 Room Air* 0 N/A Nasal Cannula* 04/09/25 06:45 97.5 123/56 (78) Result Diagram: 04/09/2540904/09/25409 Awake , alert, and oriented in person, time and place. Morbidly obese HEENT: Atraumatic, normocephalic, EOMI, anicteric sclera ; moist mucous membrane Neck: Trachea midline. Supple, full range of motion, no JVD Cardiac: Regular rhythm, regular rate with no murmurs all over the precordium. Respiratory: Diminished air movement bilaterally, sparse expiratory wheezing improving from yesterday, no crackles, Chest wall is symmetric and without deformity. Gastrointestinal: Abdomen distended, soft, non-tender, normal bowel sounds x4 quadrant, normoactive, no hepatosplenomegaly Musculoskeletal: 3+ lower extremity edema, brown skin discoloration Neurological: Mental status exam: alert and consciousness, orientation, memory, speech - Cranial nerve test: Cranial nerves 2-12 intact - Motor system: Normal Nutrition, decreased tone, Power 4/5 in lower extremities, no involuntary movements - Sensory system: Intact - Cerebellar: Normal Skin: Warm and dry Coagulation Studies Laboratory Tests Test 04/04/25 19:23 04/06/25 06:13 Prothrombin Time 13.5 SECONDS (9.0-12.0) H INR International Normalized Ratio 1.4 INR Activated Partial Thromboplast Time 29 SECONDS (22-32) Coagulation Comments D-Dimer 0.95 MG/L FEU (0-0.50) H D-Dimer Comment Plan Plan Assessment 55-year-old female with a past medical history of morbid obesity, hypothyroidism, COPD, prior DVT, chronic lymphedema, presented in the ER for severe shortness of breath that started suddenly. She was admitted for further evaluation management. 1. Acute on chronic hypercapnic and hypoxemic respiratory failure - resolved Obesity hypoventilation syndrome , BMI 50 Acute COPD exacerbation, actively smoking - resolved PE cannot be ruled out, elevated d-dimer, high risk Well's score Heart failure, ruled out (elevated BNP but normal Echo) ABG at admission: PaO2 68%, Cheli 73, pH normal hypoxemic respiratory failure Chest X-ray: cardiomegaly, mild pulmonary venous congestion Echo: Overall systolic function is normal. LVEF is 60-65%. Plan: Oximetry 97% on room air, stable Completed ceftriaxone (day 5) and azithromycin (day 3) Duo nebs p.r.n., started on budesonide daily Clinically stable from respiratory standpoint 2. Acute UTI due to ESBL Urine culture grew ESBL sensitive only to meropenem Continue meropenem, day 2 Planned 2 weeks of antibiotics Awaiting placement 3. Hypothyroidism On levothyroxine 112 mcg daily TSH 1.13 Plan: Continue current dose 4. Hypokalemia - resolved Hyponatremia -resolved K 3.7 today On Lasix 20 mg daily; Plan: Replace potassium per protocol. Convert IV Lasix to p.o. 20mg daily. 5. History of DVT Venous US: No acute DVT. Left femoral vein is small in size which could be related to previous thrombus. Continue Xarelto 20 mg daily 6. Intertrigo (Yoselin) Continue nystatin cream Continue skin care, keep it dry and clean Code Status: Full code DVT Prophylaxis: Xarelto Lines/Tubes: PIV Gi Prophylaxis: Pantoprazole Nutrition: Regular diet Prognosis: Guarded Disposition: Continue meropenem for ESBL. Awaiting placement. Resident attestation The above note has been reviewed and supervised by a senior resident PGY2/PGY3 Patient was seen, examined and discussed with the attending physician Dr Parker Date of Service: Apr 09, 2025 Billing Provider: ALYSSA PARKER MD, LUCAS, RES Apr 09, 2025 10:41
--- NOTE | 2025-04-09 11:38 | PROGRESS NOTE- Residence ---
Progress Note - Resident Providers to CC Resident Creating Document: ELLIE OLIVA RES ~ Antibiotic Timeout Antibiotic Ordered?: Yes Subjective Patient was seen at the surgical floor. She is still reports urinary symptoms i.e. burning urination, however, has significantly improved. Continue meropenem IV for five more days, total of seven days (till 04/14). We are signing off. Objective Vital Signs Date Time Temp Pulse Resp B/P (MAP) Pulse Ox O2 Delivery O2 Flow Rate FiO2 04/09/25 11:27 70 16 96 Room Air* 0 N/A Nasal Cannula* 04/09/25 06:45 97.5 123/56 (78) General: Awake and Alert, no acute distress. Resp: Bilateral expiratory wheezing Heart: Regular Rate and rhythm, normal S1 and S2 without murmur, rub or gallop. Abdomen: Soft and non tender no organomegaly Extremities: 2+ pedal edema, lymphedema, stasis dermatitis Skin: Warm and Dry. Result Diagram: 04/09/25 0410 04/09/25 0410 Coagulation Studies Laboratory Tests Test 04/04/25 19:23 04/06/25 06:13 Prothrombin Time 13.5 SECONDS (9.0-12.0) H INR International Normalized Ratio 1.4 INR Activated Partial Thromboplast Time 29 SECONDS (22-32) Coagulation Comments D-Dimer 0.95 MG/L FEU (0-0.50) H D-Dimer Comment Advance Care Planning Advanced Care plannin - 30 Minutes Plan Plan ESBL producing E coli urinary tract infection Urine culture positive for ESBL E coli, resistant to all antibiotics except meropenem Likely complicated UTI given her obesity hyperventilation and recent relocation to assisted living No bacteremia; blood cultures not obtained. She has remained afebrile and hemodynamically stable Currently clinically stable and improving. Creatinine is normal. Plan: Continue Meropenem 1 g IV every 8 hours until April 14, 2025. Disposition: Midline and SNF placement. Acute on chronic respiratory failure Acute COPD exacerbation Obesity hyperventilation syndrome continue management per primary team Ellie Oliva Internal Medicine Resident, PGY-3 Date of Service: Apr 09, 2025 Billing Provider: WHIT DUBOSE MD, SHAMS, YESICA Apr 09, 2025 11:38
[2025-04-09] MEDS: albuterol 2.5 MG/3 ML nebule NEB PRN (20:20)
[2025-04-09] MEDS: budesonide 0.5mg/2ml UD nebule IH SCH (20:21)
[2025-04-10] VITALS (10 sets, daily range): BP systolic 91–134; BP diastolic 38–70; PULSE 6–70; RESP 16–24; TEMP 97.7–98; O2SAT 93–99
[2025-04-10] MEDS ORDERED: budesonide 0.5mg/2ml UD nebule IH SCH (08:00)
[2025-04-10] MEDS: lactobacillus rhamnosus 10,000 MMU CELLS/CAPSULE PO SCH (10:26)
--- NOTE | 2025-04-10 15:47 | PROGRESS NOTE- Residence ---
Progress Note - Resident Providers to CC Resident Creating Document: ELIZABETH WEBB RES ~ Antibiotic Timeout Antibiotic Ordered?: Yes Subjective Patient was seen and examined at the bedside. The patient denies chest pain, shortness of breath, productive cough or fever. She is on IV meropenem and urinalysis have improved. Today she is complaining of chronic watery diarrhea for the past five months, usually three episodes daily. She denies abdominal pain, nausea or vomiting. No overnight events reported. Objective Vital Signs Date Time Temp Pulse Resp B/P (MAP) Pulse Ox O2 Delivery O2 Flow Rate FiO2 04/10/25 10:00 97.7 63 16 129/70 (89) 96 Nasal Cannula 1.0 04/10/25 07:47 24 Result Diagram: 04/09/2540904/09/25409 Awake , alert, and oriented in person, time and place. Morbidly obese HEENT: Atraumatic, normocephalic, EOMI, anicteric sclera ; moist mucous membrane Neck: Trachea midline. Supple, full range of motion, no JVD Cardiac: Regular rhythm, regular rate with no murmurs all over the precordium. Respiratory: Diminished air movement bilaterally, sparse expiratory wheezing improving from yesterday, no crackles, Chest wall is symmetric and without deformity. Gastrointestinal: Abdomen distended, soft, non-tender, normal bowel sounds x4 quadrant, normoactive, no hepatosplenomegaly Musculoskeletal: 3+ lower extremity edema, brown skin discoloration Neurological: Mental status exam: alert and consciousness, orientation, memory, speech - Cranial nerve test: Cranial nerves 2-12 intact - Motor system: Normal Nutrition, decreased tone, Power 4/5 in lower extremities, no involuntary movements - Sensory system: Intact - Cerebellar: Normal Skin: Warm and dry Coagulation Studies Laboratory Tests Test 04/04/25 19:23 04/06/25 06:13 Prothrombin Time 13.5 SECONDS (9.0-12.0) H INR International Normalized Ratio 1.4 INR Activated Partial Thromboplast Time 29 SECONDS (22-32) Coagulation Comments D-Dimer 0.95 MG/L FEU (0-0.50) H D-Dimer Comment Plan Plan Assessment 55-year-old female with a past medical history of morbid obesity, hypothyroidism, COPD, prior DVT, chronic lymphedema, presented in the ER for severe shortness of breath that started suddenly. She was admitted for further evaluation management. Urine culture grew ESBL for which she is receiving IV meropenem. 1. Acute on chronic hypercapnic and hypoxemic respiratory failure - resolved Obesity hypoventilation syndrome , BMI 50 Acute COPD exacerbation, actively smoking - resolved PE cannot be ruled out, elevated d-dimer, high risk Well's score Heart failure, ruled out (elevated BNP but normal Echo) ABG at admission: PaO2 68%, Cheli 73, pH normal hypoxemic respiratory failure Chest X-ray: cardiomegaly, mild pulmonary venous congestion Echo: Overall systolic function is normal. LVEF is 60-65%. Completed ceftriaxone (day 5) and azithromycin (day 3) Plan: Discontinue IV Solu-Medrol Started on inhaled budesonide b.i.d. Duo nebs p.r.n. Symbicort at discharge 2. Acute UTI due to ESBL Urine culture grew ESBL sensitive only to meropenem Continue meropenem, day 3 Continue meropenem until 04/14/2025 [address] placement 3. Hypothyroidism On levothyroxine 112 mcg daily TSH 1.13 Plan: Continue current dose 4. Hypokalemia - resolved Hyponatremia -resolved On Lasix 20 mg daily; Plan: Replace potassium per protocol. 5. History of DVT Venous US: No acute DVT. Left femoral vein is small in size which could be related to previous thrombus. Continue Xarelto 20 mg daily 6. Intertrigo (Yoselin) Continue nystatin cream Continue skin care, keep it dry and clean 7. Chronic diarrhea Patient reports five months of watery diarrhea Ordered stool culture, C diff, occult blood, ova and parasites Started on Culturelle b.i.d. Outpatient evaluation recommended Code Status: Full code DVT Prophylaxis: Xarelto Lines/Tubes: PIV Gi Prophylaxis: Pantoprazole Nutrition: Regular diet Prognosis: Guarded Disposition: Continue meropenem for ESBL until 04/14/25. Awaiting placement. Resident attestation The above note has been reviewed and supervised by a senior resident PGY2/PGY3 Patient was seen, examined and discussed with the attending physician Dr Parker Date of Service: Apr 10, 2025 Billing Provider: ALYSSA PARKER MD, LUCAS, RES Apr 10, 2025 15:46
[2025-04-10 22:41] LABS: OCCULT BLOOD STOOL NEGATIVE (Neg)
[2025-04-11] VITALS (12 sets, daily range): BP systolic 99–127; BP diastolic 63–81; PULSE 58–77; RESP 16–20; TEMP 97.3–98.7; O2SAT 92–98
[2025-04-11 06:06] LABS: MEAN PLATELET VOLUME 6.6 FL (7.4-10.4); RED CELL DISTRIBUTION WIDTH 19.1 % (11.5-14.5)
[2025-04-11 06:19] LABS: CREATININE 0.64 MG/DL (0.40-0.90); TOTAL CARBON DIOXIDE 39.7 MMOL/L (24-32); eCRCL 101 ML/MIN; eGFR > 90 ML/MIN
[2025-04-11 06:40] LABS: PLATELET ESTIMATE NORMAL
[2025-04-11] MEDS: pantoprazole 40mg Tablet.DR PO SCH (08:00)
--- NOTE | 2025-04-11 16:11 | PROGRESS NOTE- Residence ---
Progress Note - Resident Providers to CC Resident Creating Document: MARCEL HARVEY, YESICA ~ Central Line/PICC still needed: N\A Gonzalez-Non Protocol Gonzalez Indications Met/Not Met: F/C Indications Not Met Antibiotic Timeout Antibiotic Ordered?: Yes Subjective Patient was seen and examined at the bedside. The patient denies chest pain, shortness of breath, productive cough or fever. She is on IV meropenem, 4 more doses remaining. She denies abdominal pain, nausea or vomiting. No overnight events reported. Maintaining saturation above 90% with 3 L O2 Objective Vital Signs Date Time Temp Pulse Resp B/P (MAP) Pulse Ox O2 Delivery O2 Flow Rate FiO2 04/11/25 10:00 98.2 64 16 123/63 (83) 93 Room Air 04/11/25 08:18 1.0 04/11/25 08:10 24 Result Diagram: 04/11/25 0535 04/11/25 0535 General: Morbidly obese Well alert, well oriented, not confused, not agitated, not in acute distress, well cooperated during the physical. HEENT: Conjunctive are pink, sclerae clear, no icterus, pupil is equal in both sides, reactive to light, no ear discharge, no pharyngeal erythema or an edema. Neck: Supple, no JVD, no lymphadenopathy and thyromegaly. Chest: Equal air entry on both lungs, no added sounds, no wheeze. Cardiovascular: S1-S2 regular sinus rhythm and, regular rate, no gallops, no rubs, no murmurs Abdomen: No visible peristalsis, Bowel sounds present on auscultation, soft, nontender, no guarding, no rigidity Extremities: Bilateral lipodermatosclerosis, no pitting edema bilaterally, capillary refill intact, peripheral pulsations are intact on both sides Central Nervous System: No focal neurological deficits, no motor or sensory weakness in all 4 extremities, could move all 4 extremities, 2+ deep tendon reflexes, negative Babinski. Musculoskeletal: No joint swelling, deformities, inflammations, and no scoliosis and back tenderness Skin: Warm and dry. Coagulation Studies Laboratory Tests Test 04/04/25 19:23 04/06/25 06:13 Prothrombin Time 13.5 SECONDS (9.0-12.0) H INR International Normalized Ratio 1.4 INR Activated Partial Thromboplast Time 29 SECONDS (22-32) Coagulation Comments D-Dimer 0.95 MG/L FEU (0-0.50) H D-Dimer Comment Plan Plan Assessment 55-year-old female with a past medical history of morbid obesity, hypothyroidism, COPD, prior DVT, chronic lymphedema, presented in the ER for severe shortness of breath that started suddenly. She was admitted for further evaluation management. Urine culture grew ESBL for which she is receiving IV meropenem. 1. Acute on chronic hypercapnic and hypoxemic respiratory failure - resolved Obesity hypoventilation syndrome , BMI 50 Acute COPD exacerbation, actively smoking - resolved PE cannot be ruled out, elevated d-dimer, high risk Well's score Heart failure, ruled out (elevated BNP but normal Echo) ABG at admission: PaO2 68%, Cheli 73, pH normal hypoxemic respiratory failure Chest X-ray: cardiomegaly, mild pulmonary venous congestion Echo: Overall systolic function is normal. LVEF is 60-65%. Completed ceftriaxone (day 5) and azithromycin (day 3) Plan: Continue inhaled budesonide b.i.d. Duo nebs p.r.n. Symbicort at discharge 2. Acute UTI due to ESBL Urine culture grew ESBL sensitive only to meropenem Continue meropenem until 04/14/2025 [address] placement 3. Hypokalemia - resolved Potassium 3.2 today On Lasix 20 mg daily; Hypo/hyperkalemia protocol in place 4. History of DVT 5. Intertrigo (Yoselin) 6. Hypothyroidism Continue Xarelto 20 mg daily Continue nystatin powder Continue skin care, keep it dry and clean TSH 1.13, continue levothyroxine 112 mcg daily 7. Chronic diarrhea Lactose intolerant Patient reports five months of watery/gritty diarrhea, with 1 episode of loose stools in the last 24 hours Awaiting stool culture, C diff, occult blood, ova and parasites Continue Culturelle b.i.d. She avoids mg in progress, no history of gluten sensitivity. No signs of fat-soluble vitamin deficiency Code Status: Full code DVT Prophylaxis: Xarelto Lines/Tubes: PIV Gi Prophylaxis: Pantoprazole Nutrition: Regular diet Prognosis: Guarded Disposition: Continue meropenem for ESBL until 04/14/25. Awaiting placement. Resident attestation The above note has been reviewed and supervised by a senior resident PGY2/PGY3 Patient was seen, examined and discussed with the attending physician Dr Mallory Date of Service: Apr 11, 2025 Billing Provider: SHAY MALLORY DO Common Visit Codes: [id number] INP/OBS CARE(HIGH) MARCEL HARVEY, RES Apr 11, 2025 16:10 SHAY MALLORY DO Apr 11, 2025 16:24
[2025-04-11] MEDS: meropenem inj 1 GM in normal saline 100ml IV soln 100 ML IV SCH (16:25)
[2025-04-11] MEDS ORDERED: potassium Cl 40MEQ/1/2NS 520ml 520 ML IV PRN (17:40)
[2025-04-11] MEDS ORDERED: potassium Cl 20 mEq SR tablet PO PRN (17:40)
[2025-04-11] MEDS: ondansetron/PF 4mg/2ml inj IV PRN (17:53)
[2025-04-11] MEDS: potassium Cl 20 mEq SR tablet PO PRN (20:45)
[2025-04-12] VITALS (11 sets, daily range): BP systolic 96–120; BP diastolic 44–64; PULSE 65–74; RESP 16–19; TEMP 97.7–98.6; O2SAT 90–98
[2025-04-12] MEDS: ipratropium/albuterol 3ml nebule NEB PRN (08:34)
--- NOTE | 2025-04-12 16:55 | PROGRESS NOTE- Residence ---
Progress Note - Resident Providers to CC Resident Creating Document: FRANCY العلي, RES ~ Antibiotic Timeout Antibiotic Ordered?: Yes Subjective The patient was seen and examined at bedside today. She has no new complaints. Objective Vital Signs Date Time Temp Pulse Resp B/P (MAP) Pulse Ox O2 Delivery O2 Flow Rate FiO2 04/12/25 10:00 98.3 65 16 96/44 (61) 98 Nasal Cannula 1.5 04/12/25 08:35 24 Result Diagram: 04/11/25 0535 04/12/25 1227 Awake , alert, and oriented in person, time and place. Morbidly obese HEENT: Atraumatic, normocephalic, EOMI, anicteric sclera; moist mucous membrane Neck: Trachea midline. Supple, full range of motion, no JVD Cardiac: Regular rhythm, regular rate with no murmurs all over the precordium. Respiratory: Diminished air movement bilaterally, no crackles, Chest wall is symmetric and without deformity. Gastrointestinal: Abdomen distended, soft, non-tender, normal bowel sounds x4 quadrant, normoactive, no hepatosplenomegaly Musculoskeletal: 3+ lower extremity edema, brown skin discoloration Neurological: Mental status exam: alert and consciousness, orientation, memory, speech - Cranial nerve test: Cranial nerves 2-12 intact - Motor system: Normal Nutrition, decreased tone, Power 4/5 in lower extremities, no involuntary movements - Sensory system: Intact - Cerebellar: Normal Skin: Warm and dry Coagulation Studies Laboratory Tests Test 04/04/25 19:23 04/06/25 06:13 Prothrombin Time 13.5 SECONDS (9.0-12.0) H INR International Normalized Ratio 1.4 INR Activated Partial Thromboplast Time 29 SECONDS (22-32) Coagulation Comments D-Dimer 0.95 MG/L FEU (0-0.50) H D-Dimer Comment Assessment Assessment A 55-year-old female with a past medical history of morbid obesity, hypothyroidism, COPD, prior DVT, chronic lymphedema, presented in the ER for severe shortness of breath that started suddenly. She was admitted for further evaluation management. Urine culture grew ESBL for which she is receiving IV meropenem. Plan Plan 1. Acute on chronic hypercapnic and hypoxemic respiratory failure - resolved Obesity hypoventilation syndrome, BMI 50 Acute COPD exacerbation, actively smoking - resolved PE cannot be ruled out, elevated d-dimer, high risk Well's score Heart failure, ruled out (elevated BNP but normal Echo) ABG at admission: PaO2 68%, Cheli 73, pH normal hypoxemic respiratory failure Chest X-ray: cardiomegaly, mild pulmonary venous congestion Echo: Overall systolic function is normal. LVEF is 60-65%. Completed ceftriaxone (day 5) and azithromycin (day 3) Plan: Continue inhaled budesonide b.i.d. Duo nebs p.r.n. Symbicort at discharge 2. Acute UTI due to ESBL Urine culture grew ESBL sensitive only to meropenem Continue meropenem until 04/14/2025 3. Hypokalemia - resolved Potassium 3.2 today On Lasix 20 mg daily Hypo/hyperkalemia protocol in place 4. History of DVT 5. Intertrigo (Yoselin) 6. Hypothyroidism Continue Xarelto 20 mg daily Continue nystatin powder Continue skin care, keep it dry and clean TSH 1.13, continue levothyroxine 112 mcg daily 7. Chronic diarrhea Lactose intolerant Awaiting stool culture, C diff Continue Culturelle b.i.d. No signs of fat-soluble vitamin deficiency Outpatient evaluation recommended Code Status: Full code DVT Prophylaxis: Xarelto Lines/Tubes: PIV GI Prophylaxis: Pantoprazole Nutrition: Regular diet Prognosis: Guarded Disposition: Continue meropenem for ESBL until 04/14/25. The patient has a return home to [facility] and care once completed course of meropenem Francy العلي MD Internal Medicine Resident, PGY-2 The patient was seen and examined with attending physician, Dr. Mallory. Date of Service: Apr 12, 2025 Billing Provider: SHAY MALLORY DO Common Visit Codes: [id number] INP/OBS CARE(MOD), [id number] INP/OBS CARE(HIGH) FRANCY العلي, RES Apr 12, 2025 16:55 SHAY MALLORY DO Apr 12, 2025 17:07
[2025-04-13] VITALS (10 sets, daily range): BP systolic 86–123; BP diastolic 56–61; PULSE 60–66; RESP 12–20; TEMP 97.7–97.9; O2SAT 93–99
[2025-04-13 05:41] LABS: MEAN PLATELET VOLUME 7.0 FL (7.4-10.4); RED CELL DISTRIBUTION WIDTH 18.9 % (11.5-14.5)
[2025-04-13 06:14] LABS: PLATELET ESTIMATE NORMAL
[2025-04-13 06:49] LABS: CREATININE 0.58 MG/DL (0.40-0.90); eCRCL 112 ML/MIN; eGFR > 90 ML/MIN
[2025-04-13 06:52] LABS: TOTAL CARBON DIOXIDE 40.0 MMOL/L (24-32)
--- NOTE | 2025-04-13 11:27 | PROGRESS NOTE- Residence ---
Progress Note - Resident Providers to CC Resident Creating Document: CECY ROBERT RES CC: ALYSSA PARKER MD ~ Antibiotic Timeout Antibiotic Ordered?: Yes Subjective The patient was seen and examined at bedside today. Patient has a seen comfortably in bed. She has no other acute symptoms. She will receive her antibiotic course of IV meropenem q8h and will get discharged tomorrow Objective Vital Signs Date Time Temp Pulse Resp B/P (MAP) Pulse Ox O2 Delivery O2 Flow Rate FiO2 04/13/25 09:11 62 20 Nasal Cannula 3.0 04/13/25 08:59 99 36 04/13/25 07:07 123/56 (78) 04/13/25 06:56 97.7 Result Diagram: 04/13/2543204/13/25432 General: Awake, oriented to person, place and time HEENT: Conjunctive are pink, sclerae clear, no icterus, pupil is equal in both sides, reactive to light, no ear discharge, no pharyngeal erythema or an edema. Neck: Supple, no JVD, no lymphadenopathy and thyromegaly. Chest: Bilateral vesicular breath sounds heard, bilateral lower zones absent breath sounds, no rhonchi no wheezing at the moment. Cardiovascular: S1-S2 regular sinus rhythm and, regular rate, no gallops, no rubs, no murmurs Abdomen: No visible peristalsis, Bowel sounds present on auscultation, soft, no tenderness, no guarding, no rigidity. Morbid obese abdomen, hepatomegaly noted, inter inguinal redness noted Extremities: Bilateral lower extremities chronic lymphedema and chronic venous stasis with 2+ pitting edema noted, capillary refill intact, peripheral pulsations are intact on both sides Neurologic: Mental status: alert and conscious, oriented to place, person and time, preserved memory, normal speech. Cranial nerves I-XII: Normal. Motor system: Preserved power, coordination, no evidenced involuntary movements, strength in bilateral upper extremities 5/5, strength in bilateral lower extremities 2/5 Sensory system: Preserved temperature, pain and vibration sensation. 2+ deep tendon reflexes in biceps, triceps, quadriceps. Negative Babinski. Cerebellar: No nystagmus, dysdiadochokinesia, normal [id number] testing. Musculoskeletal: No joint swelling, deformities, inflammations, and no scoliosis and back tenderness Skin: Warm and dry. Dry oral mucosa. Coagulation Studies Laboratory Tests Test 04/04/25 19:23 04/06/25 06:13 Prothrombin Time 13.5 SECONDS (9.0-12.0) H INR International Normalized Ratio 1.4 INR Activated Partial Thromboplast Time 29 SECONDS (22-32) Coagulation Comments D-Dimer 0.95 MG/L FEU (0-0.50) H D-Dimer Comment Advance Care Planning Advanced Care plannin - 30 Minutes Assessment Assessment A 55-year-old female with a past medical history of morbid obesity, hypothyroidism, COPD, prior DVT, chronic lymphedema, presented in the ER for severe shortness of breath that started suddenly. She was admitted for further evaluation management. Urine culture grew ESBL for which she is receiving IV meropenem. Plan Plan Acute on chronic hypercapnic and hypoxemic respiratory failure - resolved Obesity hypoventilation syndrome, BMI 50 Acute COPD exacerbation, actively smoking - resolved PE cannot be ruled out, elevated d-dimer, high risk Well's score Heart failure, ruled out (elevated BNP but normal Echo) ABG at admission: PaO2 68%, Cheli 73, pH normal hypoxemic respiratory failure Chest X-ray: cardiomegaly, mild pulmonary venous congestion Echo: Overall systolic function is normal. LVEF is 60-65%. Completed ceftriaxone and azithromycin Plan: Continue inhaled budesonide b.i.d. Duo nebs p.r.n. Symbicort at discharge Acute UTI due to ESBL Urine culture grew ESBL sensitive only to meropenem Continue meropenem until 04/14/2025 Continue Culturelle Hypokalemia - resolved Patient's potassium is at 3.4 today On Lasix 20 mg daily Hypo/hyperkalemia protocol in place History of DVT Continue Xarelto 20 mg daily Intertrigo (Yoselin) Continue nystatin powder Continue skin care, keep it dry and clean Hypothyroidism TSH 1.13, continue levothyroxine 112 mcg daily Chronic diarrhea Lactose intolerant Awaiting stool culture, C diff Continue Culturelle b.i.d. No signs of fat-soluble vitamin deficiency Outpatient evaluation recommended Code Status: Full code DVT Prophylaxis: Xarelto Lines/Tubes: PIV GI Prophylaxis: Pantoprazole Nutrition: Regular diet Prognosis: Guarded Disposition: Continue meropenem for ESBL until 04/14/25. Patient would require outpatient sleep study on discharge. Patient will get discharged tomorrow The above note has been reviewed and supervised by the senior resident PGY 2/PGY 3. Patient was seen and examined and discussed with attending physician Dr.Bawa Cecy Robert MD Internal Medicine Resident, PGY-1 Date of Service: Apr 13, 2025 Billing Provider: ALYSSA PARKER MD, JAHNAVI, RES Apr 13, 2025 11:27
--- NOTE | 2025-04-13 17:02 | DISCHARGE SUMMARY-Residence ---
Discharge Summary Providers to CC Resident Creating Document: OSIRIS ROBERT RES CC: ALYSSA PARKER MD ~ Discharge Summary Admission Diagnosis: COPD EXABERATION Hospital Course DATE OF ADMISSION: 04/04/2025 DATE OF DISCHARGE: 04/14/2025 Discharge Diagnosis\Comment: Acute on chronic hypercapnic and hypoxemic respiratory failure - resolved Obesity hypoventilation syndrome, BMI 50 Acute COPD exacerbation- resolved Acute UTI due to ESBL Hypokalemia - resolved History of DVT Intertrigo (Yoselin) Hypothyroidism Chronic diarrhea Lactose intolerant Operations\Procedures: None Consultants: Infectious disease legal consultant- Dr. Williamson Complications: None Condition on DC: Stable for transfer New Medications: Budesonide/Formoterol Fumarate (Symbicort 80-4.5 Mcg Inhaler) 80 Mcg-4.5 Mcg/Actuation Hfa.aer.ad 2 PUFFS INH Q12H for 30 Days, #1 UNIT 0 Refills Potassium Chloride* (K-Dur*) 20 Meq Tab.prt.sr 1 TAB PO DAILY for 30 Days, #30 TAB Continued Medications: Acetaminophen (Tylenol) 325 Mg Tablet 1 TAB PO QDAY PRN PRN for pain or fever for 30 Days, #30 TAB Albuterol Sulfate Nebs* (Proventil Nebs*) 2.5 Mg/0.5 Ml Vial.neb 1 VIAL NEB Q4H for shortness of breath for 10 Days, #30 ML Bupropion Hcl SR* (Wellbutrin SR*) 150 Mg Tablet.sa 1 TAB PO DAILY, TAB LOOK-ALIKE SOUND-ALIKE DRUG buSPIRone & buPROPion Furosemide (Lasix) 20 Mg Tablet 1 TAB PO DAILY for 30 Days, #30 TAB 0 Refills Gabapentin (Gabapentin) 100 Mg Capsule 1 CAP PO Q8H for 30 Days, #90 CAP 0 Refills Levothyroxine Sodium (Levothyroxine) 112 Mcg Capsule 1 CAP PO DAILY for 30 Days, #30 CAP 0 Refills Nystatin/Triamcin Cream* (Mycolog Cream*) 100,000 Unit/Gram-0.1 % Cream.gm. 1 APPLIC TP TID, GM Pantoprazole Sodium (Protonix) 40 Mg Suspdr.pkt 40 MG PO, PACKET Rivaroxaban (Xarelto) 20 Mg Tablet 1 TAB PO DAILY for 30 Days, #30 TAB 0 Refills with food Discharge Summary: HPI as per attending physician A 55-year-old female patient morbid obesity with past medical history of hypothyroidism, COPD on home oxygen of 4 L presented to the ED from long-term assisted living [facility], with chief complaints of shortness of breath and reduced oxygen saturation. Patient experience shortness of breath and was confused, on evaluation her oxygen saturation had dropped down to 30% and patient was brought to the ED. Evaluation in the ED patient's ABG was done which reported oxygen saturation of 68%, CO2 of 73-patient was diagnosed with hypercapnic respiratory failure and was initiated on BiPAP with FiO2 of 40% Patient does not move much and is usually on her wheelchair or resting on bed. Patient also has a history of blood clots for which she has been on Xarelto for the last four years. She also reported that she takes Lasix for her lymphedema. Patient denied any chief complaints of palpitations, fevers, chest pain Patient's primary care doctor is from [facility]. Patient son lives close by, patient does not recall at her son's number Hospital course: A 55-year-old female patient morbid obesity with past medical history of hypothyroidism, COPD on home oxygen of 4 L presented to the ED from long-term assisted living [facility], with chief complaints of shortness of breath and reduced oxygen saturation. Patient was diagnosed with acute on chronic hypercapnic and hypoxemic respiratory failure secondary to obesity hypoventilation syndrome and acute COPD exacerbation, patient is in initially on BiPAP and eventually transitioned to her baseline oxygen of 4 L, patient completed her antibiotic course of ceftriaxone azithromycin which was initiated after chest x-ray showed mild pulmonary vascular congestion, patient was also initiated on inhaled budesonide b.i.d. and DuoNebs p.r.n. in addition patient developed acute UTI with symptoms of burning micturition, but urine culture grew ESBL which was sensitive only to meropenem. Infectious Disease was consulted and they recommended meropenem for the patient. Patient also has chronic hypokalemia and is on Lasix 20 mg daily, replaced her potassium as per protocol. Patient has a history of DVT and was initiated on Xarelto, we continued her Xarelto 20 mg. Patient has a history of hypothyroidism her TSH was within normal limits we continued her home medication levothyroxine 112 mcg. Patient has a history of chronic diarrhea, she is lactose intolerant, no signs of fat- soluble vitamin deficiency, recommended outpatient evaluation Significant imaging Chest x-ray 04/04/2025 Cardiomegaly with mild pulmonary venous congestion. Vascular ultrasound 04/05/2025 1. NO SONOGRAPHIC EVIDENCE FOR DEEP VENOUS THROMBOSIS IN THE BILATERAL LOWER EXTREMITY VEINS. 2. Left femoral vein is small in size which could be related to previous thrombus. Echocardiogram 04/05/2025 Normal LV size and wall thickness. Overall systolic function is normal. LVEF is 60-65%. RV appears normal in size and function. The left atrium size is normal. Trileaflet AV appears normal without stenosis. No insufficiency. Mild MV annular calcification without stenosis. Trace regurgitation. TV appears structurally normal with trace regurgitation. Normal pericardium. No effusion. UTI culture and sensitivities CULT URINE + COLONY CT Final Organism 1 ESCHERICHIA COLI >100,000 CFU/ml UNUSUAL RESISTANCE NOTED, CONTACT ISOLATION INDICATED NOT PREVIOUSLY REPORTED NOTIFIED: INFECTION CONTROL,NEEL OSORIO RN 04/08/25 0864 MIXED GRAM POSITIVE CHIDI ALSO PRESENT. E COLI M.I.C. RX --------- --- AMOXICILLIN/CA >=32 R CEFAZOLIN >=32 R CEFEPIME >=32 R CEFTRIAXONE >=64 R CIPROFLOXACIN >=4 R GENTAMICIN >=16 R LEVOFLOXACIN >=8 R MEROPENEM <=0.25 S TOBRAMYCIN >=16 R TRIMETHOPRIM/SULFA >=320 R PIP/TAZOBACTAM 64 R Physical examination the time of discharge General: Awake, oriented to person, place and time HEENT: Conjunctive are pink, sclerae clear, no icterus, pupil is equal in both sides, reactive to light, no ear discharge, no pharyngeal erythema or an edema. Neck: Supple, no JVD, no lymphadenopathy and thyromegaly. Chest: Bilateral vesicular breath sounds heard, bilateral lower zones absent breath sounds, no rhonchi no wheezing at the moment. Cardiovascular: S1-S2 regular sinus rhythm and, regular rate, no gallops, no rubs, no murmurs Abdomen: No visible peristalsis, Bowel sounds present on auscultation, soft, no tenderness, no guarding, no rigidity. Morbid obese abdomen, hepatomegaly noted, inter inguinal redness noted Extremities: Bilateral lower extremities chronic lymphedema and chronic venous stasis with 2+ pitting edema noted, capillary refill intact, peripheral pulsations are intact on both sides Neurologic: Mental status: alert and conscious, oriented to place, person and time, preserved memory, normal speech. Cranial nerves I-XII: Normal. Motor system: Preserved power, coordination, no evidenced involuntary movements, strength in bilateral upper extremities 5/5, strength in bilateral lower extremities 2/5 Sensory system: Preserved temperature, pain and vibration sensation. 2+ deep tendon reflexes in biceps, triceps, quadriceps. Negative Babinski. Cerebellar: No nystagmus, dysdiadochokinesia, normal [id number] testing. Musculoskeletal: No joint swelling, deformities, inflammations, and no scoliosis and back tenderness Skin: Warm and dry. Dry oral mucosa. Laboratory Tests Test 04/12/25 12:27 04/13/25 04:33 Potassium Level 4.4 MMOL/L 3.4 MMOL/L White Blood Count 5.5 X10'3 Red Blood Count 5.20 X10'6 Hemoglobin 12.5 g/dl Hematocrit 40.0 % Mean Corpuscular Volume 77.0 FL Mean Corpuscular Hemoglobin 24.0 PG Mean Corpuscular Hemoglobin Concent 31.2 g/dL Red Cell Distribution Width 18.9 % Platelet Count 219 X10'3 Mean Platelet Volume 7.0 FL Neutrophils (%) (Auto) 63.1 % Lymphocytes (%) (Auto) 27.7 % Monocytes (%) (Auto) 5.5 % Eosinophils (%) (Auto) 3.4 % Basophils (%) (Auto) 0.3 % Neutrophils # (Auto) 3.5 X10'3 Lymphocytes # (Auto) 1.5 X10'3 Monocytes # (Auto) 0.3 X10'3 Eosinophils # (Auto) 0.2 X10'3 Basophils # (Auto) 0.0 X10'3 CBC Comment Platelet Estimate Normal Red Blood Cell Morphology Perf Basophilic Stippling Anisocytosis 2+ Microcytosis 1+ Sodium Level 140 MMOL/L Chloride Level 99 MMOL/L Carbon Dioxide Level 40.0 MMOL/L Anion Gap 1 Blood Urea Nitrogen 15 MG/DL Creatinine 0.58 MG/DL Estimated GFR/1.73 m2 > 90 ML/MIN BUN/Creatinine Ratio 25.9 Glucose Level 118 MG/DL Calcium Level 7.9 MG/DL Total Bilirubin 0.6 MG/DL Aspartate Amino Transf (AST/SGOT) 48 U/L Alanine Aminotransferase (ALT/SGPT) 114 U/L Alkaline Phosphatase 87 IU/L Total Protein 5.5 G/DL Albumin 2.5 G/DL Globulin 3.0 G/DL Albumin/Globulin Ratio 0.8 Chemistry Comments Vital Signs Date Time Temp Pulse Resp B/P (MAP) Pulse Ox O2 Delivery O2 Flow Rate FiO2 04/13/25 09:11 62 20 Nasal Cannula 3.0 04/13/25 08:59 99 36 04/13/25 07:07 123/56 (78) 04/13/25 06:56 97.7 DISCHARGE ADVISE Follow-up with your PCP in 1-2 weeks with a repeat of BMP Follow-up with [employer] printing [employer] operator Dr Tatum outpatient for spirometry, sleep study and CPAP Take Symbicort twice a day Use oxygen as needed to maintain oxygen between 88% to 92%. Return to ED if your oxygen saturation drops below 88% Return to ED in case of case of chest pain, worsening shortness of breath or any other concerning symptoms *Problems/Diagnosis: (1) Acute respiratory failure with hypoxia and hypercarbia Status: Acute Total Time Spent on D/C: Up to 30 Minutes Counseling Services Smoking & Tobacco Cessation: 3-10 Minutes Date of Service: Apr 14, 2025 Billing Provider: ALYSSA PARKER MD, JAHNAVI, RES Apr 13, 2025 17:01
[2025-04-14] VITALS (7 sets, daily range): BP systolic 105–150; BP diastolic 60–82; PULSE 60–84; RESP 16–23; TEMP 97–98.4; O2SAT 94–99
[2025-04-14 04:02] LABS: MEAN PLATELET VOLUME 7.1 FL (7.4-10.4); RED CELL DISTRIBUTION WIDTH 18.5 % (11.5-14.5)
[2025-04-14 04:16] LABS: CREATININE 0.47 MG/DL (0.40-0.90); TOTAL CARBON DIOXIDE 39.0 MMOL/L (24-32); eCRCL 138 ML/MIN; eGFR > 90 ML/MIN
[2025-04-14] MEDS ORDERED: POTA-207 PO (10:48)
[2025-04-14] MEDS ORDERED: BUDE10.22 INH (10:48)
== END 2025-04-14 16:45 | disposition home or self-care (01) | DRG 133 ==
LOC: ER 18:32 → UNDOADMIN 21:24 → ED HOLD 21:24 → EDBEDREQSVC 22:04 → ED HOLD 22:32 → EDBEDREQ 04-05 13:57 → PCU 3S 04-05 14:05 → ED HOLD 04-05 14:05 → PCU 3S 04-08 11:54 → SUR 3N 04-08 17:54
PROVIDERS: ADMIT Internal Medicine; ATTEND Family Medicine
PROC: 5A09357 Assistance with Respiratory Ventilation, Less than 24 Consecutive Hours, Continuous Positive Airway Pressure (ICD-10-PCS; principal; 2025-04-04)
PROC: 05HD33Z Insertion of Infusion Device into Right Cephalic Vein, Percutaneous Approach (ICD-10-PCS; 2025-04-08)
PROC: B54MZZA Ultrasonography of Right Upper Extremity Veins, Guidance (ICD-10-PCS; 2025-04-08)
DX: J96.21 Acute and chronic respiratory failure with hypoxia (principal); I50.33 Acute on chronic diastolic (congestive) heart failure; E66.2 Morbid (severe) obesity with alveolar hypoventilation; E87.1 Hypo-osmolality and hyponatremia; J96.22 Acute and chronic respiratory failure with hypercapnia; N39.0 Urinary tract infection, site not specified; Z79.01 Long term (current) use of anticoagulants; B96.29 Other Escherichia coli [E. coli] as the cause of diseases classified elsewhere; E03.9 Hypothyroidism, unspecified; Z20.822 Contact with and (suspected) exposure to COVID-19; Z68.43 Body mass index [BMI] 50.0-59.9, adult; E87.6 Hypokalemia; L30.4 Erythema intertrigo; T50.2X5A Adverse effect of carbonic-anhydrase inhibitors, benzothiadiazides and other diuretics, initial encounter; E73.8 Other lactose intolerance; Y92.89 Other specified places as the place of occurrence of the external cause; Z88.0 Allergy status to penicillin; Z91.013 Allergy to seafood; Z90.49 Acquired absence of other specified parts of digestive tract; Z98.891 History of uterine scar from previous surgery; Z79.899 Other long term (current) drug therapy
CPT/HCPCS: 36410; 36415; 36600; 71045; 76937; 80048; 80053; 80061; 81001; 82272; 82803; 83036; 83735; 83880; 84100; 84132; 84145; 84443; 84484; 85008; 85018; 85025; 85379; 85610; 85730; 87045; 87046; 87077; 87081; 87088; 87186; 87324; 87449; 87811; 93005; 93306; 93970; 94640; 94660; 94760; 96365; 96375; 99285; A4615; A6212; A6213; A6250; A6258; C1751; G0378; J0696; J1171; J1938; J2185; J2405; J2470; J2919; J7030; J7040; J7042; Q9967